=== PATIENT | female | born 1990 | race Caucasian/White ===

== ENCOUNTER 2021-09-29 09:10 | Emergency (ER) | payer SELFPAY ==
[2021-09-29 10:15] LABS: CHLORIDE,CL 102 mmol/L (98-107); SODIUM,NA 139 mmol/L (136-145)
[2021-09-29 10:16] LABS: ANION GAP 15.6 mmol/L (5-15); ESTIMATED GFR > 60
== END 2021-09-29 10:01 | disposition short-term general hospital (02) ==
LOC: VM.ED 09:10
DX: O03.4 Incomplete spontaneous abortion without complication (principal)
CPT/HCPCS: 36415; 80048; 81025; 85025; 86140; 99284